=== PATIENT | female | born 1960 | race Caucasian/White ===

== ENCOUNTER → 2016-07-06 | Outpatient (CLI) | payer BC ==
[2015-05-10 01:08] VITALS: BP 146/79
[~2016-07-06] MED LIST: CIPRO250 M1 PO; FLOMAX PO; ONDANSETRON HYDR4 M1 PO; PERCOCET 325 MG1 TA2 PO
== END ==
LOC: MAMMO 08:15
DX: Z12.31 Encounter for screening mammogram for malignant neoplasm of breast (principal)
CPT/HCPCS: G0202

== ENCOUNTER → 2019-11-19 | Outpatient (CLI) | payer BC ==
[2015-05-10 01:08] VITALS: BP 146/79
[2019-11-19 07:19] LABS: EOS # 0.2 (0.04-0.40); EOS % 3.5 % (1.0-5.0); HEMATOCRIT 40.7 % (37.0-47.0); LYMPH# 1.5 (1.50-4.00); MEAN CELL VOLUME 99 fl (78-100); MEAN CORPUSCULAR HEMOGLOBIN 32 pg (27-31); MEAN CORPUSCULAR HGB CONC 32 g/dL (33-37); MEAN PLATELET VOLUME 10.6 fl (7.4-10.4); MONO # 0.4 (0.20-0.80); NEU # 2.3 (1.40-6.50); PLATELET COUNT 182 K/mm3 (130-400); RED BLOOD COUNT 4.11 M/mm3 (4.10-5.30); RED CELL DISTRIBUTION WIDTH 12.4 % (11.5-14.5); WHITE BLOOD COUNT 4.3 K/mm3 (4.8-10.8)
[2019-11-19 07:25] LABS: ALBUMIN 4.2 g/dL (3.4-4.8); POTASSIUM 4.2 mmol/L (3.5-5.1)
[2019-11-19 07:26] LABS: CALCIUM 9.1 mg/dL (8.3-10.5)
[2019-11-19 07:27] LABS: TOTAL PROTEIN 6.8 g/dL (6.2-8.1)
[2019-11-19 07:29] LABS: TOTAL BILIRUBIN 0.5 mg/dL (0.2-1.2)
== END ==
LOC: MAMMO 07:01
PROVIDERS: Physician Assistant
DX: Z01.419 Encounter for gynecological examination (general) (routine) without abnormal findings (principal); Z12.31 Encounter for screening mammogram for malignant neoplasm of breast; E78.5 Hyperlipidemia, unspecified; R03.0 Elevated blood-pressure reading, without diagnosis of hypertension

== ENCOUNTER → 2023-05-24 | Outpatient (CLI) | payer MEDICARE, BC ==
[2023-05-24 14:26] LABS: BASO # 0.03 K/mm3 (0.02-0.10); EOS # 0.11 K/mm3 (0.04-0.40); EOS % 1.9 % (1.0-5.0); HEMATOCRIT 45.2 % (37.0-47.0); HEMOGLOBIN 14.7 g/dL (12.5-16.0); LYMPH# 1.71 K/mm3 (1.50-4.00); MEAN CELL VOLUME 97 fl (78-100); MEAN CORPUSCULAR HEMOGLOBIN 31 pg (27-31); MEAN CORPUSCULAR HGB CONC 33 g/dL (33-37); MEAN PLATELET VOLUME 10.7 fl (7.4-10.4); MONO # 0.34 K/mm3 (0.20-0.80); NEU # 3.47 K/mm3 (1.40-6.50); PLATELET COUNT 252 K/mm3 (130-400); RED BLOOD COUNT 4.68 M/mm3 (4.10-5.30); RED CELL DISTRIBUTION WIDTH 11.7 % (11.5-14.5); WHITE BLOOD COUNT 5.7 K/mm3 (4.8-10.8)
[2023-05-24 14:49] LABS: ALBUMIN 4.7 g/dL (3.4-4.8)
[2023-05-24 14:50] LABS: CALCIUM 10.3 mg/dL (8.3-10.5)
[2023-05-24 14:51] LABS: TOTAL PROTEIN 7.3 g/dL (6.2-8.1)
[2023-05-24 14:53] LABS: TOTAL BILIRUBIN 0.5 mg/dL (0.2-1.2)
[2023-05-24 23:35] LABS: HEPATITIS C VIRUS ANTIBODY Negative (Negative)
== END ==
LOC: LAB 14:14
PROVIDERS: Physician Assistant
DX: Z11.59 Encounter for screening for other viral diseases (principal); Z13.29 Encounter for screening for other suspected endocrine disorder; Z13.1 Encounter for screening for diabetes mellitus; K90.9 Intestinal malabsorption, unspecified; E78.5 Hyperlipidemia, unspecified; R53.83 Other fatigue

== ENCOUNTER → 2023-09-29 | Outpatient (CLI) | payer MEDICARE, BC | LOC: RAD 10:49 | DX: R31.29 Other microscopic hematuria (principal) ==

== ENCOUNTER → 2024-03-14 | Outpatient (CLI) | payer MEDICARE, BC | LOC: RAD 13:02 | DX: S92.351A Displaced fracture of fifth metatarsal bone, right foot, initial encounter for closed fracture (principal); W19.XXXA Unspecified fall, initial encounter ==